=== PATIENT | female | born 1980 | race Caucasian/White ===

== ENCOUNTER 2016-10-08 11:58 | Outpatient (CLI) | payer OTHER ==
--- NOTE | 2016-10-08 12:25 | RADRPT ---
PROCEDURE: US OB biophysical profile. CLINICAL INDICATION: decreased movements TECHNIQUE: Multiple sonographic images of the pelvis were obtained. The images were reviewed on a PACS workstation. COMPARISON: No prior studies are available for comparison. FINDINGS: There is a single viable intrauterine gestation. Cardiac activity is present with 142 beats per min erica. There is a vertex presentation. The placenta is anterior. There is a 5.7 x 2.6 cm hypoechoic area seen within the placenta. There is a normal amount of amniotic fluid with an TRUNG = 17.6 cm. Biophysical profile: movement 2/2 tone 2/2. breathing 2/2 TRUNG 2/2 Total 12/02 RPTAT: AA . IMPRESSION: Normal biophysical profile. Focal hypoechoic area within the placenta may represent a focal placental hematoma . Close follow-up is needed. .Silvio Moore MD, Date Time Electronically viewed and signed by .Silvio Moore MD, on 10/08/2016 12:25 .S/
--- NOTE | 2016-10-08 13:31 | PN ---
Triage Information Date/Time October 08, 2016 at 1:28 PM Weeks of Gestation 29 weeks and 5 days : 3 Para: 2 Diabetes: none Hypertention: none Additional information 35-year-old with IUP at 29 weeks and 5 days presented with complaint of decreased movements. She denies any vaginal bleeding, leaking of fluid or contractions. Antepartum course was complicated by finding of hypoechoic area within the placenta questionable for focal placental hematoma. She is being seen by perinatologist on a regular basis. Objective Exam General appearance: Alert and oriented 4 patient does not appear to be in any acute distress. Abdomen: Soft, gravid, nontender, no rebound tenderness, fundal height consistent with gestational age NST: Category 1 No contraction seen on the monitor BPP: 88 TRUNG: 17.6 Results/Medications Imaging Results PROCEDURE: US OB biophysical profile. CLINICAL INDICATION: decreased movements TECHNIQUE: Multiple sonographic images of the pelvis were obtained. The images were reviewed on a PACS workstation. COMPARISON: No prior studies are available for comparison. FINDINGS: There is a single viable intrauterine gestation. Cardiac activity is present with 142 beats per minute. There is a vertex presentation. The placenta is anterior. There is a 5.7 x 2.6 cm hypoechoic area seen within the placenta. There is a normal amount of amniotic fluid with an TRUNG = 17.6 cm. Biophysical profile: movement 2/2 tone 2/2. breathing 2/2 TRUNG 2/2 Total 12/02 RPTAT: AA . IMPRESSION: Normal biophysical profile. Focal hypoechoic area within the placenta may represent a focal placental hematoma . Close follow-up is needed. Assessment/Plan IUP at 29 weeks and 5 days Decreased movement testing reassuring. BPP and NST reassuring Adequate amniotic fluid Hypoechoic area within the placenta consistent with focal placental hematoma Patient needs continue follow-up with perinatologist She is currently under the care of perinatologist and being seen on a regular basis. Strict labor precaution and kick count discussed Follow-up with OB clinic in the next 24-48 hours or sooner as needed recommended Return to triage if she still continue feeling decreased movement, vaginal bleeding, leaking of fluid or contractions or any other concerns. Patient verbalized understanding plan of care and agreed to comply with instructions. ANA CARRANZA MD Oct 08, 2016 13:31
--- NOTE | 2016-10-08 13:32 | TRIAGE ---
OB Triage Datetime Report Generated by CPN: 10/08/2016 13:32 Datetime: 10/08/2016 13:30 Stage of : OB Triage Maternal Assessment Level of Consciousness: Fully Conscious DTR's/Clonus: DTRs 1+ Headache: Denies Breath Sounds, Left: Clear and Equal Breath Sounds, Right: Clear and Equal Nausea/Vomiting: Denies RUQ Epigastric Pain: Denies Labor Evaluation Frequency: NONE Monitor Mode: External Resting Tone [place]: Relaxed Heart Rate FHR Baseline Rate: 150 Monitor Mode: External US Variability: Moderate 6-25 bpm Accelerations: 15X15 Decelerations: None Category: Category I Comments: PT STATES FEELING BABY MOVE AT THIS TIME Pain Assessment Pain Scale: 0 Pain Presence: None/Denies Pain Type: N/A Pain Goal: 3 Vaginal Exam Membrane Status: Intact Datetime: 10/08/2016 13:00 Stage of : OB Triage Maternal Assessment Level of Consciousness: Fully Conscious DTR's/Clonus: DTRs 1+ Headache: Denies Breath Sounds, Left: Clear and Equal Breath Sounds, Right: Clear and Equal Nausea/Vomiting: Denies RUQ Epigastric Pain: Denies Labor Evaluation Frequency: NONE Monitor Mode: External Resting Tone [place]: Relaxed Heart Rate FHR Baseline Rate: 150 Monitor Mode: External US Variability: Moderate 6-25 bpm Accelerations: 15X15 Decelerations: None Category: Category I Comments: REACTIVE ACCORDING TO MOVEMENT Pain Assessment Pain Scale: 0 Pain Presence: None/Denies Pain Type: N/A Pain Goal: 3 Vaginal Exam Membrane Status: Intact Datetime: 10/08/2016 12:38 Maternal Assessment Level of Consciousness: Fully Conscious DTR's/Clonus: DTRs 1+ Headache: Denies Blurred Vision: No Respiratory Effort: Unlabored Breath Sounds, Left: Clear and Equal Breath Sounds, Right: Clear and Equal Nausea/Vomiting: Denies RUQ Epigastric Pain: Denies Facial Edema: None Labor Evaluation Frequency: NONE Monitor Mode: External Resting Tone [place]: Relaxed Heart Rate FHR Baseline Rate: 150 Monitor Mode: External US Variability: Moderate 6-25 bpm Accelerations: 10X10 Decelerations: None Category: Category I Pain Assessment Pain Scale: 0 Pain Presence: None/Denies Pain Type: N/A Pain Goal: 3 Vaginal Exam Membrane Status: Intact Datetime: 10/08/2016 12:26 EGA: 29.5 Datetime: 10/08/2016 12:10 Assessment Type: Triage Maternal Assessment Level of Consciousness: Fully Conscious DTR's/Clonus: DTRs 2+; No Clonus Headache: Denies Blurred Vision: No Respiratory Effort: Unlabored; Regular Rhythm; Equal Expansion Breath Sounds, Left: Clear and Equal Breath Sounds, Right: Clear and Equal Nausea/Vomiting: Denies RUQ Epigastric Pain: Denies Lower Extremities Edema: None Degree: None Upper Extremities Edema: None Degree: None Facial Edema: None Fall Risk Assessment History of Falling: (0) No Secondary Diagnosis: (0) No Ambulatory Aid: (0) Bedrest/Nurse Assist IV Therapy: (0) No Gait: (0) Normal/Bedrest/Immobile Mental Status: (0) Oriented to Own Ability Fall Score: 0 Fall Risk Score Definition: No Risk: No action required Datetime: 10/08/2016 12:07 Heart Rate FHR Baseline Rate: 150 Datetime: 10/08/2016 11:55 Time of Arrival: 10/08/2016 11:55 Arrived By: Ambulatory Arrived From: Home Chief Complaint: DFM Movement: Present Contractions: Denies/Absent Rupture of Membranes: Denies Vaginal Bleeding: None Vaginal Discharge: Denies Recent Sexual Intercouse: Denies Abdominal Trauma: Not Applicable Patient Complaints: Other Time Provider Notified: 10/08/2016 12:10 Provider Notified: MICHELL Initial Plan: NST AND BPP
== END 2016-10-08 13:31 | disposition home or self-care (01) ==
LOC: OBT 11:58 → L-D 11:59 → OBT 13:31
PROVIDERS: ATTEND Obstetrics & Gynecology
DX: O36.8130 Decreased fetal movements, third trimester, not applicable or unspecified (principal); Z3A.29 29 weeks gestation of pregnancy
CPT/HCPCS: 76818; G0463

== ENCOUNTER 2016-11-24 00:10 | Outpatient (CLI) | payer OTHER ==
[~2016-11-24] VITALS: Ht 162.6 cm; Wt 122.2 kg
[2016-11-24 00:34] VITALS: Ht 162.6 cm; Wt 122.2 kg
[2016-11-24 00:35] VITALS: BP 137/77; PULSE 110; RESP 20
[2016-11-24] MEDS ORDERED: PRENAT PO (00:36)
[2016-11-24] MEDS ORDERED: TERBUTALINE 1 MG/ML INJ SC ONE ×2 (01:00→02:00)
--- NOTE | 2016-11-24 04:28 | PN ---
Triage Information Date/Time November 24, 2016 Weeks of Gestation 36w 3d : 3 Para: 2 Diabetes: none Hypertention: none Additional information 36 y.o. with contractions. Pt had a prior at 37 weeks and then a C/S at 32 weeks for a placenta previa complication. Pt desires a and, per pt, she has discussed this with Dr Armstrong. No leaking or vaginal bleeding. + movement-lots! PMHx: none. PSHx: C/S x 1. NKDA. Objective Vital Signs Date Time Temp Pulse Resp B/P Pulse Ox O2 Delivery O2 Flow Rate FiO2 11/24/16 00:35 98.0 110 20 137/77 Room Air Heart Rate: 130's Heart Rate Comments With accels to 160 bpm. No decels. Contractions: 6-10 Minutes Apart Exam CX: FT/30%/-3 Assessment/Plan A: IUP at 36w 3d False labor. Previous C/S. P: Pt was given p.o. hydration and terbutaline x 2 and the UC's decreased in intensity and frequency but did not caitlin. Pt appeared fairly comfortable and decided to go home. D/C pt home. Reviewed and labor precautions with pt. Pt has an appt with Dr Armstrong on 10/27 and is encouraged to discuss her plan with him again. CALVIN MATSON MD Nov 24, 2016 04:23
== END 2016-11-24 04:30 | disposition home or self-care (01) ==
LOC: OBT 00:10 → L-D 00:10 → OBT 04:30
PROVIDERS: ATTEND Obstetrics & Gynecology
DX: O47.03 False labor before 37 completed weeks of gestation, third trimester (principal); O09.293 Supervision of pregnancy with other poor reproductive or obstetric history, third trimester; Z3A.36 36 weeks gestation of pregnancy; O34.219 Maternal care for unspecified type scar from previous cesarean delivery
CPT/HCPCS: 96372; J3105; Z7500; G0463

== ENCOUNTER 2016-12-11 16:58 | Inpatient (IN) | payer OTHER ==
[~2016-12-11] VITALS: Ht 162.6 cm; Wt 118.0 kg
[~2016-12-11 16:58] MED LIST: PRENAT PO
[2016-12-11] MEDS ORDERED: CEFAZOLIN 2 GM/50 ML (PMX) 50 ML IV SCH (18:00)
[2016-12-11] MEDS ORDERED: OXYTOCIN 30 UNITS/LR 500 ML IV SCH (18:00)
[2016-12-11] MEDS ORDERED: OXYTOCIN 30 UNITS/LR 500 ML IV PRN (18:00)
[2016-12-11] MEDS ORDERED: MISOPROSTOL 200 MCG TAB PR PRN (18:00)
[2016-12-11] MEDS ORDERED: CARBOPROST 250 MCG INJ IM PRN (18:00)
[2016-12-11] MEDS ORDERED: METHYLERGONOVINE 0.2 MG INJ IM PRN (18:00)
[2016-12-11 18:45] VITALS: Ht 162.6 cm; Wt 118.0 kg
[2016-12-11 18:46] VITALS: BP 127/80; PULSE 100; RESP 18
[2016-12-11 18:46] LABS: BASOPHILS % 0.2 % (0.0-2.0); EOSINOPHILS # 0.3 10^3/ul (0.0-0.5); EOSINOPHILS % 1.6 % (0.0-7.0); HEMATOCRIT 39.9 % (37.0-47.0); HEMOGLOBIN 13.8 g/dl (12.0-16.0); LYMPHOCYTES # 3.1 10^3/ul (0.8-2.9); LYMPHOCYTES % 19.4 % (15.0-51.0); MEAN CORPUSCULAR HEMOGLOBIN 31.7 pg (29.0-33.0); MEAN CORPUSCULAR HGB CONC 34.6 g/dl (32.0-37.0); MEAN CORPUSCULAR VOLUME 91.7 fl (82.0-101.0); MEAN PLATELET VOLUME 9.8 fl (7.4-10.4); MONOCYTE # 1.2 10^3/ul (0.3-0.9); MONOCYTES % 7.6 % (0.0-11.0); NEUTROPHILS % 70.3 % (39.0-77.0); PLATELET COUNT 288 10^3/UL (140-415); RED BLOOD COUNT 4.35 10^6/ul (4.20-5.40); RED CELL DISTRIBUTION WIDTH 13.6 % (11.5-14.5); WHITE BLOOD COUNT 15.9 10^3/ul (4.8-10.8)
[2016-12-11] MEDS ORDERED: LACTATED RINGER'S 1,000 ML IV ONE (19:00)
[2016-12-11] MEDS ORDERED: LACTATED RINGER'S 1,000 ML IV SCH (19:00)
[2016-12-11 19:23] LABS: INR 0.92; PARTIAL THROMBOPLASTIN TIME 28.1 Sec (25.0-35.0); PROTIME 12.4 Sec (12.2-14.2)
[2016-12-11] MEDS ORDERED: morphine SULFATE/PF (10 MG/10 ML) INJ ONE (22:06)
[2016-12-11] MEDS ORDERED: FENTAnyl 50 MCG/ML VIAL ONE (22:06)
[2016-12-11] MEDS ORDERED: PHENYLephrine (100 MCG/ML) 5ML SYG ONE (22:17)
[2016-12-11] MEDS ORDERED: DEXAMETHASONE 4 MG/ML 1 ML INJ ONE (22:20)
[2016-12-11] MEDS ORDERED: ONDANSETRON 4 MG INJ ONE (22:21)
--- NOTE | 2016-12-11 22:38 | PREOPHP ---
DATE OF ADMISSION: 12/11/2016 HISTORY OF PRESENT ILLNESS: Ms. Yvonne Burgos is a 36-year- old, 3, para 2, EDC 12/19/2016 intrauterine at 38 weeks and 6 days' gestational age with a history of previous C- section x1, recommended by perinatologist to deliver at 38 weeks. She has a history of GDMA1 in the current and polyhydramnios. She denies any vaginal bleeding or discharge. Her care took place at approximately 26 weeks at [facility]. PAST MEDICAL HISTORY: Psoriasis and migraine. PAST SURGICAL HISTORY: Previous x1. OBSTETRICAL HISTORY: Vaginal delivery x1 and 1 . GYNECOLOGICAL HISTORY: Twelve, regular 3-4 days. Denies any sexually transmitted diseases. Sexually active with 1 partner. MEDICATIONS: vitamins. SOCIAL HISTORY: Denies any smoking, drugs, or alcohol. FAMILY HISTORY: None. PHYSICAL EXAMINATION: HEENT: Within normal. LUNGS: CTA bilateral. CARDIOVASCULAR: S1, S2. Regular rhythm. ABDOMEN: Obese, gravid, and nontender. Negative CVAT bilateral. PELVIC: Vaginal exam is deferred. EXTREMITIES: Negative edema and no calf tenderness. Positive psoriatic lesions. ASSESSMENT: A 36-year-old 3, para 2 with: 1. Intrauterine at 38 weeks and 6 days' gestational age, gestational diabetes mellitus, diet (GDMA1). 2. Previous section x1. 3. Desires elective repeat delivery; declined vaginal after section (). PLAN: Consented for a repeat delivery. Risks, benefits, and alternatives explained and all questions were answered. Dictated By: Felipe Zhou MD /[email or web address] /Document#: [id number]
[2016-12-11] MEDS ORDERED: CEFAZOLIN 1 GM INJ ONE (22:41)
[2016-12-11] MEDS ORDERED: DIPHENHYDRAMINE 50 MG INJ IV PRN (23:00)
[2016-12-11] MEDS ORDERED: ZOLPIDEM 5 MG TAB PO PRN (23:00)
[2016-12-11] MEDS ORDERED: ONDANSETRON 4 MG INJ IV PRN (23:00)
[2016-12-11] MEDS ORDERED: HYDROmorphONE 1 MG/ML SYG IV PRN ×2 (23:00)
[2016-12-11] MEDS ORDERED: NALOXONE (0.4 MG/ML) INJ IV PRN (23:00)
--- NOTE | 2016-12-11 23:32 | OPR ---
Date/Time of Note Date/Time of Note DATE: 12/11/16 TIME: 23:28 Operative Report Free Text/Dictation 36 yo iup at 38 wks 6 days ga, GDMA1, polyhydramios, obese, previous CD X 1 , desire elective repeat cd, decline Postoperative Diagnosis same Operation/Procedure Performed repeat low transverse CD Surgeon: JETT GALARZA MD review assistant: MICHAEL SETHI MD Anesthesia Type: spinal Estimated Blood Loss: other (500) Transfusion Required: no Specimen: none Grafts/Implants: none Complications: no JETT GALARZA MD Dec 11, 2016 23:32
[2016-12-12] MEDS ORDERED: METHYLERGONOVINE 0.2 MG INJ IM PRN
[2016-12-12] MEDS ORDERED: MISOPROSTOL 200 MCG TAB PR PRN
[2016-12-12] MEDS ORDERED: CEFAZOLIN 2 GM/50 ML (PMX) 50 ML IV SCH
[2016-12-12] MEDS ORDERED: OXYCODONE/ACETAMINOPHEN (5/325) TAB PO PRN
[2016-12-12] MEDS ORDERED: LANOLIN 7 GM TUBE TOP PRN
[2016-12-12] MEDS ORDERED: CARBOPROST 250 MCG INJ IM PRN
[2016-12-12] MEDS ORDERED: OXYTOCIN 30 UNITS/LR 500 ML IV PRN
--- NOTE | 2016-12-12 00:10 | OPR ---
DATE OF OPERATION: 12/11/2016 PREOPERATIVE DIAGNOSIS: A 36-year-old 3, para 2, intrauterine at 38 weeks and 6 days' gestational age, gestational diabetes mellitus on diet, obese, polyhydramnios, previous section x1, desires elective repeat , declined vaginal after section. POSTOPERATIVE DIAGNOSIS: A 36-year-old 3, para 2, intrauterine at 38 weeks and 6 days' gestational age, gestational diabetes mellitus on diet, obese, polyhydramnios, previous section x1, desires elective repeat , declined vaginal after section. OPERATIVE PROCEDURE: Repeat low transverse delivery. SURGEON: Felipe Zhou MD COUNSELING PROGRAM LEADER: Ivonne Núñez MD ANESTHESIA: Spinal. COMPLICATIONS: None. ESTIMATED BLOOD LOSS: 500 mL. FINDINGS: A viable female, score of 9 at one minute and 9 at five minutes, weight 8 pounds 3 ounces, x2 cords around the neck was noted. Normal uterus, tubes, and ovaries. PROCEDURE IN DETAIL: The patient was taken to the operating room, where spinal anesthesia was found to be adequate. She was then prepared and draped in a normal sterile fashion in the dorsal supine position with a leftward tilt. A Pfannenstiel skin incision was then made with a scalpel and carried through the underlying fascia. The fascia was incised in the midline and the incision extended laterally with Levi scissors. The superior aspect of the fascial incision was grasped with Smita clamps, elevated, and the underlying rectus muscles dissected off bluntly. Attention was then turned to the inferior aspect of the incision which in similar fashion was grasped and tented up with Smita clamps and the rectus muscle dissected bluntly. The rectus muscle was in midline. The peritoneum was identified and tented up sharply and bluntly with Metzenbaum scissors. The peritoneal incision was extended superiorly, obtaining good visualization of the bladder. The bladder blade was then inserted and the vesicouterine peritoneum identified, grasped with pickups and entered sharply with Metzenbaum scissors. This incision was extended laterally and the bladder flap created digitally. The bladder blade was then reinserted and the lower uterine segment incised in a transverse fashion with scalpel. The uterine incision was extended laterally and the bladder blade was removed, and the infant's head delivered atraumatically. The nose and mouth were suctioned, cord clamped and cut. The was handed off to the waiting sprayer automatic spray machine. The placenta was then removed, the uterus exteriorized and cleared of all clots and debris. The uterine incision was repaired with 1-0 chromic in a running, locked fashion. A second layer of same suture was used for imbrication. I obtain excellent hemostasis. The uterus was returned to the abdomen and the gutters were cleared of all clots. The patient's rectus abdominal muscles were reapproximated 3-0 Vicryl in an interrupted fashion. The fascia was reapproximated with 0-Vicryl in a running fashion. The subcutaneous tissue was reapproximated with 2-0 plain gut in a running fashion. The skin was closed with absorbable karla. The patient tolerated the procedure well. Sponge, lap, and needle count was correct. The patient was taken to the recovery room in stable condition. Dictated By: Felipe Zhou MD /[email or web address] /Document#: [id number]
[2016-12-12 03:05] VITALS: BP 115/70; PULSE 89
[2016-12-12] MEDS: KETOROLAC 30 MG INJ IV PRN ×2 (03:23→16:07)
[2016-12-12] MEDS: LACTATED RINGER'S 1,000 ML IV SCH ×4 (05:50→23:36)
[2016-12-12] MEDS: CEFAZOLIN 2 GM/50 ML (PMX) 50 ML IV SCH ×3 (06:20→21:29)
[2016-12-12 06:23] LABS: BASOPHILS % 0.1 % (0.0-2.0); HEMATOCRIT 38.6 % (37.0-47.0); HEMOGLOBIN 12.9 g/dl (12.0-16.0); MEAN CORPUSCULAR HEMOGLOBIN 31.2 pg (29.0-33.0); MEAN CORPUSCULAR HGB CONC 33.4 g/dl (32.0-37.0); MEAN CORPUSCULAR VOLUME 93.5 fl (82.0-101.0); MEAN PLATELET VOLUME 10.5 fl (7.4-10.4); MONOCYTE # 0.8 10^3/ul (0.3-0.9); MONOCYTES % 3.7 % (0.0-11.0); NEUTROPHILS % 86.5 % (39.0-77.0); PLATELET COUNT 284 10^3/UL (140-415); RED BLOOD COUNT 4.13 10^6/ul (4.20-5.40); RED CELL DISTRIBUTION WIDTH 14.2 % (11.5-14.5); WHITE BLOOD COUNT 22.2 10^3/ul (4.8-10.8)
[2016-12-12 08:00] VITALS: BP 108/56; PULSE 81; RESP 18
[2016-12-12] MEDS: SENNA/DOCUSATE NA (8.6MG/50MG) TAB PO SCH ×2 (09:00→21:28)
[2016-12-12 11:46] VITALS: BP 108/74; PULSE 93; RESP 18
[2016-12-12 16:00] VITALS: BP 111/59; PULSE 79; RESP 19
[2016-12-12 18:00] VITALS: BP 120/63; PULSE 80; RESP 19
[2016-12-12] MEDS: ACCU-CHEK XX SCH ×2 (18:00→21:00)
[2016-12-12] MEDS: OXYCODONE/ACETAMINOPHEN (5/325) TAB PO PRN (22:56)
[2016-12-12] MEDS: IBUPROFEN 600 MG TAB PO SCH (23:00)
[2016-12-13 00:55] VITALS: BP 116/60; PULSE 80; RESP 18
[2016-12-13 04:20] VITALS: BP 116/60; PULSE 72; RESP 18
[2016-12-13] MEDS: IBUPROFEN 600 MG TAB PO SCH ×3 (06:05→11:19)
[2016-12-13] MEDS: OXYCODONE/ACETAMINOPHEN (5/325) TAB PO PRN ×5 (06:29→22:22)
[2016-12-13] MEDS: ACCU-CHEK XX SCH ×4 (07:30→20:05)
[2016-12-13] MEDS: LACTATED RINGER'S 1,000 ML IV SCH ×3 (07:36→23:36)
[2016-12-13 08:00] VITALS: BP 98/56; PULSE 87; RESP 18
[2016-12-13] MEDS: SENNA/DOCUSATE NA (8.6MG/50MG) TAB PO SCH ×2 (10:10→22:21)
[2016-12-13 10:18] LABS: BASOPHILS % 0.3 % (0.0-2.0); EOSINOPHILS # 0.2 10^3/ul (0.0-0.5); EOSINOPHILS % 1.4 % (0.0-7.0); HEMATOCRIT 33.3 % (37.0-47.0); LYMPHOCYTES # 3.3 10^3/ul (0.8-2.9); LYMPHOCYTES % 22.1 % (15.0-51.0); MEAN CORPUSCULAR VOLUME 93.8 fl (82.0-101.0); NEUTROPHILS % 68.2 % (39.0-77.0); PLATELET COUNT 222 10^3/UL (140-415); RED BLOOD COUNT 3.55 10^6/ul (4.20-5.40); RED CELL DISTRIBUTION WIDTH 13.8 % (11.5-14.5); WHITE BLOOD COUNT 14.8 10^3/ul (4.8-10.8)
--- NOTE | 2016-12-13 11:54 | QN ---
Documentation Comment Progress Note POD #2 Pt has had issues with the pain medication completely wearing off. Is ambulating and and passing flatus w/o a problem. T=98.5 BP 98/56 Fundus irm. Incision clean, dry and intact. Steristrips present. Ext 1+ edema. WBC 14.8 Hgb 11 Plts 222K P: Continue care. Will give Motrin 800 q 6 hours and change to Percocet to q 3 hours CALVIN MATSON MD Dec 13, 2016 11:53
[2016-12-13] MEDS ORDERED: OXYCODONE/ACETAMINOPHEN (5/325) TAB PO PRN (12:00)
[2016-12-13 15:52] VITALS: BP 108/67; PULSE 88; RESP 18
[2016-12-13] MEDS: IBUPROFEN 800 MG TAB PO SCH ×2 (17:24→23:49)
[2016-12-13 19:55] VITALS: BP 133/75; PULSE 79; RESP 18
[2016-12-14 04:20] VITALS: BP 134/72; PULSE 19; RESP 18
[2016-12-14] MEDS: OXYCODONE/ACETAMINOPHEN (5/325) TAB PO PRN ×3 (04:56→15:39)
[2016-12-14] MEDS: IBUPROFEN 800 MG TAB PO SCH ×2 (06:09→11:29)
[2016-12-14] MEDS: ACCU-CHEK XX SCH ×3 (07:30→13:50)
[2016-12-14 08:00] VITALS: BP 105/66; PULSE 84; RESP 18
[2016-12-14] MEDS: SENNA/DOCUSATE NA (8.6MG/50MG) TAB PO SCH (09:46)
--- NOTE | 2016-12-14 10:33 | QN ---
Documentation Comment Progress note postop day 2 Patient seen and evaluated Patient ambulating toward diet positive flatulence positive bowel Vital signs stable Abdomen soft nontender negative distention clean dry and intact Extremity negative edema no calf tenderness Assessment status post repeat delivery postop day 2 stable afebrile Plan discharge home tomorrow follow-up in the office in 2 weeks for / postop care JETT GALARZA MD Dec 14, 2016 10:33
--- NOTE | 2016-12-14 10:34 | PD.PPDC ---
SHORT STORY WRITER Discharge Instruction Condition Patient Condition: Good Diet Diet: Resume Regular Diet Activity/Restrictions Activity: Normal Activity May Shower Restrictions: No Exercising No Lifting No Driving No Sexual Activity Nothing in the Vagina No Sells No Tampons, douche Wound/Drain Care Instructions Wound/Drain Care Instructions: Remove Steri Strips in 2 weeks Follow-up Follow-up with Physician: 2, Week/Weeks Return to clinic for CREW TRAINER Instructions: Fever greater than 101 Chills Worsening abdominal pain Excessive Vaginal Bleeding More than 2 pads per hour Unable to tolerate diet OB Instructions: Breast Tenderness Depression Blurried Vision Headache Surgical Instructions: Incisional Drainage Incisional Redness JETT GALARZA MD Dec 14, 2016 10:34
--- NOTE | 2016-12-14 12:12 | DS ---
DATE OF ADMISSION: 12/11/2016 DATE OF DISCHARGE: 12/14/2016 PRIMARY DIAGNOSES: 1. A 36-year-old, 3, para 2, intrauterine at 38 weeks and 6 days gestational age. 2. Gestational diabetes mellitus 1 (GDM1). 3. Obese. 4. Polyhydramnios. 5. Previous time 1. 6. Desires elective repeat delivery. 7. Declined vaginal after (). PROCEDURE: Repeat low transverse delivery. DISCHARGE CONDITION: Stable. DISCHARGE INSTRUCTIONS: Nothing per vaginal, no heavy lifting times 6 weeks. DIET: Regular. DISCHARGE MEDICATIONS: Motrin, Percocet, iron, and Colace. HOSPITAL COURSE: Ms. Burgos is a 36-year-old, 3, para 3, status post repeat low transverse delivery on 12/11/2016. She had a viable female, 9 and 9 after 1 and 5 minutes, weight 8 pounds 3 ounces. She did undergo postop day 1 and 2. She will be discharged on postop day 3. Her incision is clean, dry, intact. She was ambulating, tolerating diet, and positive flatulence and positive bowel movement. She will follow up in the office in 2 weeks for /postop care. Dictated By: Felipe Zhou MD /[email or web address] /Document#: [id number]
== END 2016-12-14 17:38 | disposition home or self-care (01) | DRG 765 ==
LOC: L-D 16:58 → PP1 12-12 17:57
PROVIDERS: ADMIT Obstetrics & Gynecology; ATTEND Obstetrics & Gynecology
PROC: 10D00Z1 Extraction of Products of Conception, Low, Open Approach (ICD-10-PCS; principal; 2016-12-11 19:00)
DX: O24.429 Gestational diabetes mellitus in childbirth, unspecified control (principal); Z68.41 Body mass index [BMI] 40.0-44.9, adult; O40.3XX0 Polyhydramnios, third trimester, not applicable or unspecified; Z37.0 Single live birth; Z3A.38 38 weeks gestation of pregnancy; O34.211 Maternal care for low transverse scar from previous cesarean delivery; E66.01 Morbid (severe) obesity due to excess calories; O99.213 Obesity complicating pregnancy, third trimester
CPT/HCPCS: 82962; 85025; 85610; 85730; 86592; 86850; 86900; 86901; 87340; 99464; J0690; J1100; J1170; J1200; J1885; J2210; J2274; J2370; J2405; J2590; J3010; J7120